=== PATIENT | female | born 1990 | race Caucasian/White ===

== ENCOUNTER → 2017-05-19 | Outpatient (CLI) | payer BC ==
[~2017-05-19] MED LIST: ACET-1175 PO; ACET-749 PO; IBUP600T44 PO; PRENTAB26 PO
--- NOTE | 2017-05-19 11:13 | DIAGNOSTIC IMAGING REPORT ---
LEFT FOOT MIN 3 VIEWS ROUTINE CLINICAL HISTORY: M79.672 Acute foot pain, left Tenderness with palpation of the 5t COMPARISON: None. DISCUSSION: The bones and joint spaces appear intact. There is no evidence of fracture, dislocation or bony disease. There is no evidence for soft tissue swelling. IMPRESSION: Negative study. Electronically signed by: Kevin Feliz M.D. 05/19/2017 11:12 AM Dictated Date/Time: 05/19/2017 11:12 AM
== END | disposition home or self-care (01) ==
LOC: C.RAD1850 10:44
PROVIDERS: ATTEND Physician Assistant
DX: M79.672 Pain in left foot (principal)

== ENCOUNTER → 2017-11-18 | Outpatient (CLI) | payer BC ==
[2017-11-18 12:39] LABS: BASO % 0.4 %; BASO ABS # 0.02 K/uL (0-0.2); COMPLETE YES; EOS % 2.8 %; HEMATOCRIT 39.1 % (37-47); IG% 0.2 %; LYMPH ABS # 1.47 K/uL (1.2-3.4); MEAN CELL VOLUME 90.9 fL (80-100); MEAN CORPUSCULAR HEMOGLOBIN 30.9 pg (25-34); MEAN PLATELET VOLUME 11.9 fL (7.4-10.4); NEUT % 62.6 %; PLATELET COUNT 205 K/uL (130-400); WHITE BLOOD COUNT 5.45 K/uL (4.8-10.8)
[2017-11-18 12:56] LABS: ALT/SGPT 20 U/L (12-78); AST/SGOT 17 U/L (15-37); BLOOD UREA NITROGEN 11 mg/dl (7-18); BUN/CREATININE RATIO 16.4 (10-20); C-REACTIVE PROTEIN < 0.29 mg/dl (0-0.29); CALCIUM 8.9 mg/dl (8.5-10.1); CARBON DIOXIDE 21 mmol/L (21-32); CHLORIDE 107 mmol/L (98-107); CREATININE 0.68 mg/dl (0.60-1.20); GLUCOSE 89 mg/dl (70-99); POTASSIUM 3.7 mmol/L (3.5-5.1); SODIUM 137 mmol/L (136-145)
[2017-11-18 13:03] LABS: ALB/GLOB RATIO 0.9 (0.9-2); ALKALINE PHOSPHATASE 75 U/L (45-117)
[2017-11-18 13:48] LABS: LYME DISEASE AB IGG NEG (NEG); LYME DISEASE AB IGM NEG (NEG)
[2017-11-20 15:30] LABS: PARVOVIRUS IgG INDEX 5.5 (<0.9); PARVOVIRUS IgM INDEX 0.4 (<0.9)
== END | disposition home or self-care (01) ==
LOC: C.LABBFT 10:14
PROVIDERS: ATTEND Physician Assistant Medical
DX: R20.0 Anesthesia of skin (principal)

== ENCOUNTER → 2017-11-20 | Outpatient (CLI) | payer BC ==
--- NOTE | 2017-11-20 18:37 | DIAGNOSTIC IMAGING REPORT ---
L-SPINE MIN 4 VIEWS ROUTINE CLINICAL HISTORY: 27 years-old Female presenting with R20.2 [id number] Upper leg pain, bilateral leg tingling for 4 days, no known injury. TECHNIQUE: Frontal, bilateral oblique, lateral, and coned in lateral views lumbar spine were obtained. COMPARISON: None. FINDINGS: Mild dextrocurvature of the lumbar spine. Normal lumbar lordosis. Vertebral bodies maintain normal height and alignment. Intervertebral disc spaces maintained. No advanced degenerative change. No radiographic evidence of osseous neural foraminal narrowing. No compression deformity or evidence of subluxation. No pars defect. IMPRESSION: Mild dextroscoliosis. Otherwise normal lumbar spine. Electronically signed by: Himanshu Beltrán M.D. 11/20/2017 6:36 PM Dictated Date/Time: 11/20/2017 6:35 PM
== END | disposition home or self-care (01) ==
LOC: C.RAD 18:13
PROVIDERS: ATTEND Internal Medicine
DX: M79.659 Pain in unspecified thigh (principal); R20.2 Paresthesia of skin

== ENCOUNTER → 2018-01-19 | Outpatient (CLI) | payer BC | END | disposition home or self-care (01) | LOC: C.PAPS 13:23 | PROVIDERS: ATTEND Obstetrics & Gynecology | DX: Z01.419 Encounter for gynecological examination (general) (routine) without abnormal findings (principal) ==

== ENCOUNTER → 2018-01-19 | Outpatient (CLI) | payer BC | END | disposition home or self-care (01) | LOC: C.LABSPEC 13:12 | PROVIDERS: ATTEND Obstetrics & Gynecology | DX: Z11.3 Encounter for screening for infections with a predominantly sexual mode of transmission (principal) ==

== ENCOUNTER → 2018-02-23 | Outpatient (CLI) | payer BC | END | disposition home or self-care (01) | LOC: C.LABSPEC 15:30 | PROVIDERS: ATTEND Physician Assistant | DX: Z30.430 Encounter for insertion of intrauterine contraceptive device (principal) ==

== ENCOUNTER 2018-04-10 22:02 | Emergency (ER) | payer BC ==
[~2018-04-10] VITALS: Ht 165.1 cm; Wt 84.0 kg
[~2018-04-10 22:02] MED LIST changes: -ACET-749 PO; +ACET300T3 PO
[2018-04-10 22:06] VITALS: TEMP 36.7; Ht 165.1 cm; Wt 84.0 kg
[2018-04-10] MEDS ORDERED: LORAZEPAM 1 MG TAB SL STA (22:22)
[2018-04-10 22:58] LABS: BASO % 0.3 %; BASO ABS # 0.02 K/uL (0-0.2); EOS % 0.1 %; EOS ABS # 0.01 K/uL (0-0.5); HEMATOCRIT 37.4 % (37-47); HEMOGLOBIN 13.1 g/dL (12.0-16.0); IG# 0.02 K/uL (0.00-0.02); LYMPH % 14.3 %; LYMPH ABS # 1.14 K/uL (1.2-3.4); MEAN CELL VOLUME 88.2 fL (80-100); MEAN CORPUSCULAR HEMOGLOBIN 30.9 pg (25-34); MEAN PLATELET VOLUME 11.8 fL (7.4-10.4); MONO % 5.5 %; MONO ABS # 0.44 K/uL (0.11-0.59); NEUT % 79.5 %; NEUT ABS # 6.35 K/uL (1.4-6.5); PLATELET COUNT 186 K/uL (130-400); RED CELL DISTRIBUTION WIDTH CV 12.1 % (11.5-14.5); RED CELL DISTRIBUTION WIDTH SD 38.5 fL (36.4-46.3); WHITE BLOOD COUNT 7.98 K/uL (4.8-10.8)
[2018-04-10 23:18] LABS: ALBUMIN 4.2 gm/dl (3.4-5.0); CALCIUM 8.7 mg/dl (8.5-10.1); CREATININE 0.72 mg/dl (0.60-1.20); POTASSIUM 3.3 mmol/L (3.5-5.1)
[2018-04-10 23:29] LABS: TOTAL PROTEIN 8.1 gm/dl (6.4-8.2)
[2018-04-11 01:41] VITALS: PULSE 89; O2SAT 97
[2018-04-11] MEDS ORDERED: LORA0.5T12 PO ×2 (01:46→21:33)
--- NOTE | 2018-04-11 01:49 | EMERGENCY ROOM VISIT NOTE ---
History First contact with patient: 22:08 Chief Complaint: OTHER COMPLAINT Stated Complaint: PANIC ATTACK, CHEST TIGHTNESS History of Present Illness The patient is a 27 year old female who presents to the Emergency Room with complaints of a possible panic attack. The patient reports that she feels like she is having a very bad panic attack. She reports tightness in her chest and a feeling that something is not right. Her symptoms started approximately 2 hours prior to arrival. She does have a history of anxiety and was previously on daily medication for this, but has not taken it for several months. She reports increased stress recently and states that this weekend is the anniversary of a very stressful event for her. She denies any active thoughts of suicide, but a friend with the patient states that the patient has made some statements of suicidality over the past few weeks. The patient denies any homicidal thoughts. She denies any drug use. Review of Systems A complete 10 point review of systems was reviewed with the patient with pertinent positives and negatives as per history of present illness. All else were negative. Past Medical/Surgical History Medical Problems: (1) Fetus OR affected by delivery by vacuum extractor Social History Smoking Status: Never Smoker Alcohol Use: none Drug Use: none Marital Status: single Occupation Status: employed Current/Historical Medications Scheduled Acetaminophen (Tylenol), 325 MG PO PRN Multivit/Min/Iron/Fol Ac/Pren ( Vitamin), 1 TAB PO DAILY Scheduled PRN Ibuprofen (Motrin), 600 MG PO [id number] PRN for Pain Lorazepam (Lorazepam), 1-2 TAB PO TID PRN for Anxiety Physical Exam Vital Signs Date Time Temp Pulse Resp B/P (MAP) Pulse Ox O2 Delivery O2 Flow Rate FiO2 04/11/18 01:59 128/59 04/11/18 01:41 89 13 97 04/11/18 01:31 115/71 04/11/18 01:11 89 13 97 04/11/18 01:06 95 13 96 04/11/18 01:01 116/76 04/11/18 00:36 92 15 97 04/11/18 00:31 113/78 04/11/18 00:06 93 17 96 04/11/18 00:01 107/78 04/10/18 23:57 81 13 96 04/10/18 23:27 117 18 97 04/10/18 23:22 106 16 97 04/10/18 23:00 107/71 04/10/18 22:52 96 19 98 04/10/18 22:47 100 18 97 Room Air 04/10/18 22:46 106/86 04/10/18 22:42 102 14 97 04/10/18 22:37 105 14 98 04/10/18 22:06 36.7 115 18 140/76 96 Room Air Physical Exam VITALS: Vitals are noted on the nurse's note and reviewed by myself. Vital signs stable. GENERAL: This is a 27-year-old female, anxious appearing, well-developed well- nourished. SKIN: The skin was without rashes. EARS: External auditory canals clear, tympanic membranes pearly cerda without erythema or effusion bilaterally. EYES: Pupils equal round and reactive to light and accommodation. NECK: Supple without nuchal rigidity. No lymphadenopathy. HEART: Regular rate and rhythm without murmurs gallops or rubs. LUNGS: Clear to auscultation bilaterally without wheezes, rales or rhonchi. NEURO: Patient was alert and oriented to person place and time. Medical Decision & Procedures Laboratory Results 04/10/18 22:40 Red Blood Count 4.24, Mean Corpuscular Volume 88.2, Mean Corpuscular Hemoglobin 30.9, Mean Corpuscular Hemoglobin Concent 35.0, Mean Platelet Volume 11.8, Neutrophils (%) (Auto) 79.5, Lymphocytes (%) (Auto) 14.3, Monocytes (%) (Auto) 5.5, Eosinophils (%) (Auto) 0.1, Basophils (%) (Auto) 0.3, Neutrophils # (Auto) 6.35, Lymphocytes # (Auto) 1.14, Monocytes # (Auto) 0.44, Eosinophils # (Auto) 0.01, Basophils # (Auto) 0.02 04/10/18 22:40 Test 04/10/18 22:40 White Blood Count 7.98 K/uL (4.8-10.8) Red Blood Count 4.24 M/uL (4.2-5.4) Hemoglobin 13.1 g/dL (12.0-16.0) Hematocrit 37.4 % (37-47) Mean Corpuscular Volume 88.2 fL (80-100) Mean Corpuscular Hemoglobin 30.9 pg (25-34) Mean Corpuscular Hemoglobin Concent 35.0 g/dl (32-36) Platelet Count 186 K/uL (130-400) Mean Platelet Volume 11.8 fL (7.4-10.4) Neutrophils (%) (Auto) 79.5 % Lymphocytes (%) (Auto) 14.3 % Monocytes (%) (Auto) 5.5 % Eosinophils (%) (Auto) 0.1 % Basophils (%) (Auto) 0.3 % Neutrophils # (Auto) 6.35 K/uL (1.4-6.5) Lymphocytes # (Auto) 1.14 K/uL (1.2-3.4) Monocytes # (Auto) 0.44 K/uL (0.11-0.59) Eosinophils # (Auto) 0.01 K/uL (0-0.5) Basophils # (Auto) 0.02 K/uL (0-0.2) RDW Standard Deviation 38.5 fL (36.4-46.3) RDW Coefficient of Variation 12.1 % (11.5-14.5) Immature Granulocyte % (Auto) 0.3 % Immature Granulocyte # (Auto) 0.02 K/uL (0.00-0.02) Urine Color YELLOW Urine Appearance CLEAR (CLEAR) Urine pH 5.5 (4.5-7.5) Urine Specific [place] 1.007 (1.000-1.030) Urine Protein NEG (NEG) Urine Glucose (UA) NEG (NEG) Urine Ketones NEG (NEG) Urine Occult Blood TRACE (NEG) Urine Nitrite NEG (NEG) Urine Bilirubin NEG (NEG) Urine Urobilinogen NEG (NEG) Urine Leukocyte Esterase NEG (NEG) Urine WBC (Auto) 0 /hpf (0-5) Urine RBC (Auto) 0-4 /hpf (0-4) Urine Hyaline Casts (Auto) 0 /lpf (0-5) Urine Epithelial Cells (Auto) 5-10 /lpf (0-5) Urine Bacteria (Auto) NEG (NEG) Urine Test NEG (NEG) Anion Gap 7.0 mmol/L (3-11) Est Creatinine Clear Calc Drug Dose 126.7 ml/min Estimated GFR () 134.0 Estimated GFR (Non- 115.6 BUN/Creatinine Ratio 7.4 (10-20) Calcium Level 8.7 mg/dl (8.5-10.1) Total Bilirubin 0.4 mg/dl (0.2-1) Aspartate Amino Transf (AST/SGOT) 12 U/L (15-37) Alanine Aminotransferase (ALT/SGPT) 15 U/L (12-78) Alkaline Phosphatase 67 U/L (45-117) Total Protein 8.1 gm/dl (6.4-8.2) Albumin 4.2 gm/dl (3.4-5.0) Globulin 3.9 gm/dl (2.5-4.0) Albumin/Globulin Ratio 1.1 (0.9-2) Thyroid Stimulating Hormone (TSH) 1.460 uIu/ml (0.300-4.500) Urine Opiates Screen NEG (NEG) Urine Methadone, Qualitative NEG (NEG) Urine Barbiturates NEG (NEG) Urine Phencyclidine (PCP) Level NEG (NEG) Ur Amphetamine/Methamphetamine NEG (NEG) MDMA (Ecstasy) Screen NEG (NEG) Urine Benzodiazepines Screen NEG (NEG) Urine Cocaine Metabolite NEG (NEG) Urine Marijuana (THC) NEG (NEG) Medications Administered Medications (Trade) Dose Ordered Sig/Adrianne Route Start Time Stop Time Status Last Admin Dose Admin Lorazepam (Ativan Tab) 1 mg NOW STAT SL 04/10/18 22:22 04/10/18 22:24 DC 04/10/18 22:29 1 MG ECG Per My Interpretation Indication: chest pain Rate (beats per minute): 104 Rhythm: sinus tachycardia Findings: no acute ischemic change, no ectopy Comparison ECG Date: no prior available ED Course The patient was evaluated as above. Labs were drawn and IV access was obtained. Patient was medicated with 1 mg Ativan sublingually. Patient was evaluated by the [address] [place] [address] liason. Discharge instructions were reviewed with the patient. The patient verbalized understanding of my assessment and treatment plan and was discharged home in good condition. Medical Decision Differential diagnosis includes anxiety, depression, anemia, thyroid disorder, electrolyte abnormality, infection, among others. The patient is a 27-year-old female who presents today complaining of possible panic attack. Labs revealed no leukocytosis, anemia or concerning electrolyte abnormalities. Urinalysis was not suggestive of infection. Urine was negative. EKG was interpreted by myself and shows no acute findings. Patient does seem to be very anxious on exam. She was given 1 mg Ativan which improved this significantly. Patient reports that she has a lot of stress and this weekend is the anniversary of a very traumatic event for her. She was agreeable to talking with 1 of the mental health liaison's. She did admit to some passive suicidal thoughts but denied any active suicidal ideations or plans. I do feel that she is safe to return home in the patient does not feel that she needs inpatient treatment at this time. Our psychiatric liaison did receive clearances so that they can make the patient appointments with a therapist as an outpatient. The patient plans to call her PCP first thing Friday to schedule an appointment. I did provide her with a very short course of Ativan to take as needed for severe anxiety. The patient was happy with this plan of care. Based on the patient's presentation and work up, I feel the patient is stable for outpatient treatment. The patient was educated to return to the emergency department for any worsening of their current condition or new/concerning symptoms. She will follow up with her PCP. Medication Reconcilliation Current Medication List: was personally reviewed by me Blood Pressure Screening Patient's blood pressure: Normal blood pressure Impression Primary Impression: Anxiety Additional Impression: Panic attacks Departure Information Dispostion Home / Self-Care Condition GOOD Referrals Juan M Ventura M.D. (PCP) Patient Instructions My [facility] Additional Instructions Ativan as prescribed as needed for severe anxiety/panic attacks. Follow-up with your primary care provider on Friday. Return here if you have worsening depression/suicidal thoughts or for any further concerns. Problem Qualifiers
[2018-04-11 01:59] VITALS: BP 128/59
[2018-04-11] MEDS ORDERED: IBUP-1450 PO (21:33)
== END 2018-04-11 02:04 | disposition home or self-care (01) ==
LOC: C.EDB 22:04
DX: F41.0 Panic disorder [episodic paroxysmal anxiety] (principal); Z79.899 Other long term (current) drug therapy

== ENCOUNTER 2018-04-11 17:29 | Inpatient (IN) | payer BC ==
[~2018-04-11] VITALS: Ht 165.1 cm; Wt 81.3 kg
[~2018-04-11 17:29] MED LIST changes: -ACET300T3 PO; +LORA0.5T12 PO
--- NOTE | 2018-04-11 17:55 | EMERGENCY ROOM VISIT NOTE ---
History Report prepared by Marci: Amish Handy Under the Supervision of: Dr. Anthony Rao M.D. First contact with patient: 17:39 Chief Complaint: ANXIETY Stated Complaint: ANXIETY History of Present Illness The patient is a 27 year old female who presents to the Emergency Room with complaints of worsening anxiety beginning recently. Patient is present with a friend. Patient was at the ED yesterday for similar symptoms. Friend called in today and stated that the patient's suicidal thoughts have been worsening lately. Patient admits to suicidal thoughts. She admits to trying to hurt herself in the past but states that she has never been admitted for it. She admits to a history of cutting herself. Patient states that symptoms are typically worsened around Mother's day because it is the anniversary of the day that she found her father . She states that "he was an awful person". She states that work has exacerbated her symptoms as well. She denies ever being admitted for stress or anxiety. She states that she has taken Prozac and Ativan in the past. She states that Prozac did not work so she discontinued it. She states that she does not currently follow with a therapist or psychiatrist. She states that she became frustrated when she saw a therapist over a year ago who told her "it was all in her head". She states that she has family in town but that she is not close with them. She admits that her family does not know what is currently going on with her. She states that she has a son that is currently being taken care of by a friend. Patient admits to using marijuana yesterday to help with her anxiety. Patient states that she drinks alcohol twice a week. She denies any active thoughts in the ER of suicidal ideations or homicidal ideations. Patient states that she sometimes does not know if she is hallucinating. She states that she has days where she is feeling really good and then other days when she feels really down. Patient's friend states that these high's and low's have worsened lately. Patient states that she recently opened up a [employer] credit card, which is not something that she would normally do. She also admits to "wanting to drive herself off a road". Friend states that the patient has been having "vivid flashbacks" the past couple of months. She states that her primary care physician is at [facility]. She states that she sees them when she needs to. Patient states that she takes Benadryl for a seafood allergy. Pertinent past medical history includes sciatica. Pertinent surgical history includes a tonsillectomy. Source of History: patient Onset: Recent Position: head Timing: worsening Modifying Factors (Worsening): other (Work) Modifying Factors (Relieving): other (None) Review of Systems See HPI for pertinent positives & negatives. A total of 10 systems reviewed and were otherwise negative. Past Medical & Surgical Medical Problems: (1) Fetus OR affected by delivery by vacuum extractor Family History Patient reports no known family medical history. Social History Smoking Status: Never Smoker Alcohol Use: none Drug Use: none Marital Status: single Occupation Status: employed Current/Historical Medications Scheduled Acetaminophen (Tylenol), 325 MG PO PRN Multivit/Min/Iron/Fol Ac/Pren ( Vitamin), 1 TAB PO DAILY Scheduled PRN Ibuprofen (Motrin), 600 MG PO [id number] PRN for Pain Lorazepam (Lorazepam), 1-2 TAB PO TID PRN for Anxiety Allergies Coded Allergies: Fish Allergy (Unverified Allergy, Severe, THROAT SWELLS, 04/10/18) Fish Oil (Unverified Allergy, Severe, THROAT SWELLS, 04/10/18) Shellfish Allergy (Unverified Allergy, Unknown, HIVES, 04/10/18) Hydrocodone (Verified Adverse Reaction, Mild, SHAKINESS, 04/10/18) Physical Exam Vital Signs Date Time Temp Pulse Resp B/P (MAP) Pulse Ox O2 Delivery O2 Flow Rate FiO2 04/11/18 17:31 36.8 72 20 114/68 96 Room Air Physical Exam GENERAL: Patient is sad appearing, in mild distress, crying periodically, and appropriate. EYES: No scleral icterus, unremarkable pupils. ENT: Mucous membranes moist, no nasal congestion. NECK: No masses appreciated, no meningismus, trachea is midline. RESPIRATORY: No dyspnea. Clear to auscultation and equal bilaterally. No wheeze , no rhonchi. CARDIOVASCULAR: Regular rate and rhythm. No murmurs, rubs, gallops appreciated. GASTROINTESTINAL: Abdomen soft, nontender, no peritonitis. Bowel sounds positive. No masses appreciated. BACK: No midline tenderness, no CVA tenderness EXTREMITIES: Normal motion all extremities, no cyanosis, no edema. NEUROLOGIC: Alert and oriented, no acute motor or sensory deficits, no focal weakness, cranial nerves grossly intact. PSYCH: Sad, crying, depressed, admits suicidal ideations, and admits episodes of lola. SKIN: No rash, no jaundice, no diaphoresis. Medical Decision & Procedures Laboratory Results 04/11/18 18:02 Red Blood Count 4.39, Mean Corpuscular Volume 88.6, Mean Corpuscular Hemoglobin 30.8, Mean Corpuscular Hemoglobin Concent 34.7, Mean Platelet Volume 11.8, Neutrophils (%) (Auto) 55.8, Lymphocytes (%) (Auto) 33.1, Monocytes (%) (Auto) 9.7, Eosinophils (%) (Auto) 1.2, Basophils (%) (Auto) 0.2, Neutrophils # (Auto) 2.82, Lymphocytes # (Auto) 1.67, Monocytes # (Auto) 0.49, Eosinophils # (Auto) 0.06, Basophils # (Auto) 0.01 04/11/18 18:02 Test 04/11/18 17:45 04/11/18 18:02 Urine Color YELLOW Urine Appearance CLEAR (CLEAR) Urine pH 7.0 (4.5-7.5) Urine Specific [place] 1.008 (1.000-1.030) Urine Protein NEG (NEG) Urine Glucose (UA) NEG (NEG) Urine Ketones NEG (NEG) Urine Occult Blood NEG (NEG) Urine Nitrite NEG (NEG) Urine Bilirubin NEG (NEG) Urine Urobilinogen NEG (NEG) Urine Leukocyte Esterase NEG (NEG) Urine WBC (Auto) 1-5 /hpf (0-5) Urine RBC (Auto) 0-4 /hpf (0-4) Urine Hyaline Casts (Auto) 0 /lpf (0-5) Urine Epithelial Cells (Auto) >30 /lpf (0-5) Urine Bacteria (Auto) NEG (NEG) Urine Test NEG (NEG) Urine Opiates Screen NEG (NEG) Urine Methadone, Qualitative NEG (NEG) Urine Barbiturates NEG (NEG) Urine Phencyclidine (PCP) Level NEG (NEG) Ur Amphetamine/Methamphetamine NEG (NEG) MDMA (Ecstasy) Screen NEG (NEG) Urine Benzodiazepines Screen NEG (NEG) Urine Cocaine Metabolite NEG (NEG) Urine Marijuana (THC) NEG (NEG) White Blood Count 5.05 K/uL (4.8-10.8) Red Blood Count 4.39 M/uL (4.2-5.4) Hemoglobin 13.5 g/dL (12.0-16.0) Hematocrit 38.9 % (37-47) Mean Corpuscular Volume 88.6 fL (80-100) Mean Corpuscular Hemoglobin 30.8 pg (25-34) Mean Corpuscular Hemoglobin Concent 34.7 g/dl (32-36) Platelet Count 191 K/uL (130-400) Mean Platelet Volume 11.8 fL (7.4-10.4) Neutrophils (%) (Auto) 55.8 % Lymphocytes (%) (Auto) 33.1 % Monocytes (%) (Auto) 9.7 % Eosinophils (%) (Auto) 1.2 % Basophils (%) (Auto) 0.2 % Neutrophils # (Auto) 2.82 K/uL (1.4-6.5) Lymphocytes # (Auto) 1.67 K/uL (1.2-3.4) Monocytes # (Auto) 0.49 K/uL (0.11-0.59) Eosinophils # (Auto) 0.06 K/uL (0-0.5) Basophils # (Auto) 0.01 K/uL (0-0.2) RDW Standard Deviation 38.9 fL (36.4-46.3) RDW Coefficient of Variation 12.0 % (11.5-14.5) Immature Granulocyte % (Auto) 0.0 % Immature Granulocyte # (Auto) 0.00 K/uL (0.00-0.02) Anion Gap 6.0 mmol/L (3-11) Est Creatinine Clear Calc Drug Dose 118.6 ml/min Estimated GFR () 123.5 Estimated GFR (Non- 106.6 BUN/Creatinine Ratio 7.3 (10-20) Calcium Level 9.2 mg/dl (8.5-10.1) Total Bilirubin 0.5 mg/dl (0.2-1) Aspartate Amino Transf (AST/SGOT) 12 U/L (15-37) Alanine Aminotransferase (ALT/SGPT) 14 U/L (12-78) Alkaline Phosphatase 65 U/L (45-117) Total Protein 8.5 gm/dl (6.4-8.2) Albumin 4.5 gm/dl (3.4-5.0) Globulin 4.0 gm/dl (2.5-4.0) Albumin/Globulin Ratio 1.1 (0.9-2) Thyroid Stimulating Hormone (TSH) 2.540 uIu/ml (0.300-4.500) Salicylates Level < 1.7 mg/dl (2.8-20) Acetaminophen Level < 2 ug/ml (10-30) Ethyl Alcohol mg/dL < 3.0 mg/dl (0-3) Laboratory results as reviewed by me. Medications Administered Medications (Trade) Dose Ordered Sig/Adrianne Route Start Time Stop Time Status Last Admin Dose Admin Lorazepam (Ativan Tab) 1 mg NOW STAT SL 04/11/18 19:58 04/11/18 19:59 DC 04/11/18 20:26 1 MG ED Course 1739: The patient was evaluated in room A8. A complete history and physical exam was performed. 1909: I reassessed the patient. She is agreeable to inpatient psychiatric treatment. 2021: [address] [place] [address] has accepted the patient for transfer. Discussed results and treatment plan with the patient. She verbalized understanding and agreement with the treatment plan. The patient will be evaluated for further management. Medical Decision Differential: Mood Disorder, Overdose, Infectious, Electrolyte Abnormality, Cardiac, Hepatic, Endocrine, Toxicologic, Neurologic, amongst other pathologies entertained. 27 yr old female arrives with acute worsening of anxiety and depression. She has this occur with this time of year though it is significantly worse than previous. Today with thoughts of driving care off road to kill herself. Admits that she had hoped when she went home last evening with anxiety things would have gotten better but they have spiralled since getting home and she feels she is no longer safe, as she felt safe last night. She is very much willing to participate in her care and be admitted to inpatient psych. Medically clear. Admitted to [address] [place] [address] as 201 in stable condition. Medication Reconcilliation Current Medication List: was personally reviewed by me Blood Pressure Screening Patient's blood pressure: Normal blood pressure Blood pressure disposition: Did not require urgent referral Impression Primary Impression: Depression Additional Impressions: Suicidal ideations Acute anxiety Scribe Attestation The scribe's documentation has been prepared under my direction and personally reviewed by me in its entirety. I confirm that the note above accurately reflects all work, treatment, procedures, and medical decision making performed by me. Departure Information Dispostion Transfer Acute Care Facility Referrals Juan M Ventura M.D. (PCP) Forms HOME CARE DOCUMENTATION FORM, IMPORTANT VISIT INFORMATION Patient Instructions My [facility] Problem Qualifiers
[2018-04-11 18:16] LABS: BASO % 0.2 %; BASO ABS # 0.01 K/uL (0-0.2); EOS % 1.2 %; EOS ABS # 0.06 K/uL (0-0.5); HEMATOCRIT 38.9 % (37-47); HEMOGLOBIN 13.5 g/dL (12.0-16.0); LYMPH % 33.1 %; LYMPH ABS # 1.67 K/uL (1.2-3.4); MEAN CELL VOLUME 88.6 fL (80-100); MEAN CORPUSCULAR HEMOGLOBIN 30.8 pg (25-34); MEAN CORPUSCULAR HGB CONC 34.7 g/dl (32-36); MEAN PLATELET VOLUME 11.8 fL (7.4-10.4); MONO % 9.7 %; MONO ABS # 0.49 K/uL (0.11-0.59); NEUT % 55.8 %; NEUT ABS # 2.82 K/uL (1.4-6.5); PLATELET COUNT 191 K/uL (130-400); RED CELL DISTRIBUTION WIDTH SD 38.9 fL (36.4-46.3); WHITE BLOOD COUNT 5.05 K/uL (4.8-10.8)
[2018-04-11 18:34] LABS: ALBUMIN 4.5 gm/dl (3.4-5.0); CALCIUM 9.2 mg/dl (8.5-10.1); CREATININE 0.77 mg/dl (0.60-1.20); POTASSIUM 3.7 mmol/L (3.5-5.1)
[2018-04-11 18:42] LABS: TOTAL PROTEIN 8.5 gm/dl (6.4-8.2)
[2018-04-11] MEDS ORDERED: LORAZEPAM 1 MG TAB SL STA (19:58)
[2018-04-11] MEDS ORDERED: NURSING VERBAL MED ORDER ONE (20:00)
[2018-04-11 20:30] VITALS: O2SAT 98
[2018-04-11] MEDS ORDERED: ACETAMINOPHEN 325 MG TAB PO PRN (20:30)
[2018-04-11] MEDS ORDERED: hydrOXYzine HCL 25 MG TAB PO PRN (20:30)
[2018-04-11] MEDS ORDERED: MAGNESIUM HYDROXIDE SUSP 30 ML UDC PO PRN (20:30)
[2018-04-11] MEDS ORDERED: SODIUM CHLORIDE 0.65% NA SOLN 45 ML (OCEAN) PRN (20:30)
[2018-04-11] MEDS ORDERED: ALUMINUM/MAGNESIUM SUSP 30 ML UDC PO PRN (20:30)
[2018-04-11] MEDS ORDERED: BISMUTH SUBSALICYLATE PER ML OMNICELL CHARGE PO PRN (20:30)
[2018-04-11 20:36] VITALS: BP_SYST 118; BP_SYST 120; BP_DIAS 60; BP_DIAS 81; PULSE 88; TEMP 36.5; TEMP 36.8; Ht 165.1 cm; Wt 81.3 kg
[2018-04-11] MEDS ORDERED: LORA0.5T12 PO (21:33)
[2018-04-11] MEDS ORDERED: IBUP-1450 PO (21:33)
[2018-04-12 06:55] VITALS: BP_SYST 112; BP_SYST 113; BP_DIAS 75; BP_DIAS 76; PULSE 105; PULSE 82; TEMP 36.4
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
[2018-04-12] MEDS ORDERED: SERTRALINE HCL 50 MG TAB PO ONE (08:45)
[2018-04-12] MEDS: hydrOXYzine HCL 25 MG TAB PO PRN (20:25)
[2018-04-12] MEDS: PRAZOSIN HCL 1 MG CAP PO SCH (21:52)
[2018-04-12] MEDS ORDERED: PRAZOSIN HCL 1 MG CAP PO SCH (22:00)
[2018-04-13 06:51] VITALS: BP_SYST 108; BP_SYST 112; BP_DIAS 64; BP_DIAS 66; PULSE 101; PULSE 78; TEMP 36.4
[2018-04-13] MEDS ORDERED: SERTRALINE HCL 50 MG TAB PO SCH (09:00)
--- NOTE | 2018-04-13 12:14 | Psychiatric Progress Notes ---
Progress Note Date of Service April 13, 2018. Interval History Leticia Rojas is a 27-year-old female admitted voluntarily on April 11, 2018 at 20: 05 after presenting to the ED 2 days in a row with depression, anxiety, and now suicidality. Information is obtained from the patient and considered to be reliable. Chief Complaint "Yeah, things are ok, just a little overwhelming". Subjective Patient was seen & assessed interval progress reviewed with Treatment Team. Staff reports the patient is to have a phone meeting with her sister this afternoon. Pt was seen today to assess progress since admission. Pt states she is doing well, but still adjusting to the unit. Pt denies changes to her mood thus far, and reports anxiety related to being from her 6-year- old son during her hospitalization. Pt denies side effects since beginning sertraline 50mg daily. Pt denies SI currently and states, "I just feel like the whole last 6 months have been a blur." Pt confirms plans for a phone meeting with her sister this afternoon. As patient was unsure of the reason for these meetings, she was informed of the points discussed as well as encouraged to discuss stressors/needs with her sister in order to obtain appropriate support once discharged. Pt denies additional needs or concerns today. Review of Systems Psych: denies symptoms other than stated above Constitutional: denied Cardiovascular: denied GI: denied Neurologic: denied Remainder of 10 body systems also reviewed and denied other than noted above. Sleep Information Total Hours of Sleep: 7.25 Meal Information Percent of Breakfast Consumed: 100 Percent of Lunch Consumed: 100 Percent of Dinner Consumed: 100 Mental Status Exam During interview pt is: alert and oriented, cooperative Appearance: appropriately dressed, appropriately groomed Eye contact is: good Motor behavior is: steady gait & station, no abnormal motor movements Speech: normal in rate, rhythm & volume Affect: mood congruent, blunted Mood is: anxious (about being away from son, adjusting to unit) Thought process: goal directed, clear, coherent Thought content: reality based without delusions Suicidal thought are: denied (present prior to admission), Plan: present ( Thoughts to drive her car off the road), Intent: denied Homicidal thoughts are: denied Hallucinations: denies auditory, denies visual Cognition: memory grossly intact, attention grossly intact, language grossly intact Intelligence estimated to be: average Insight: limited Judgement: limited Impression Pt states she is glad she presented for treatment, but denies much difference in reported mood or anxiety today. Pt denies feeling suicidal this morning, but states she feels like the last 6 months have been a "blur". Reviewed mechanism of action with SSRIs as well as typical 4-6 week period to expected maximum benefit. Share with patient our recommendations to titrate sertraline as tolerated. Pt denies any side effects since starting sertraline. She was offered additional time at her current 50mg dose or an increase to 75mg starting tomorrow. Pt was agreeable to titration to 75mg tomorrow morning. Will continue to observe for possible side effects and continue titration as necessary. Risks and benefits of dose increases were discussed. Pt verbalized understanding. Prazosin 1 mg given last evening for nightmares related to PTSD. Continue to monitor blood pressure. Will require psychiatric aftercare. At this time, the patient requires inpatient mental health treatment due to the severity of her condition, and the risk for self-harm if discharged prematurely. Plan (1) Major depressive disorder, recurrent severe without psychotic features 04/12 - Start zoloft 25 mg today increasing to 50 mg tomorrow - Family meeting if indicated - Q 15 min checks for safety - Encourage participation in group and individual counseling - The patient will need psychiatric aftercare including a therapist and psychiatric prescriber - Assist the patient to learn and utilize additional healthy coping strategies 04/13 - Increase sertraline to 75mg tomorrow morning, pt denies side effects - Family meeting with sister to be held this afternoon - Continue to encourage participation in group and recreational therapies - Will need psychiatric aftercare (2) PTSD (post-traumatic stress disorder) 04/12 - Zoloft as above - Prazosin 1 mg. HS for nightmares. Monitor BP Discharge / Aftercare Planning Primary Care Physician: Name: Gumaro Desouza Therapist: Name: Was with Alicia Bejarano (Poor connection) Computer Teacher: Name: Ketan Visit Code E&M Code: 19325 Inventory Assets Strengths: Love of her son, employed full-time Needs: Additional coping strategies Risk Factors Assessment : Yes /single/: Yes Higher / Fall in social status: No Health problems: No Mental Health Diagnoses: Yes Substance use disorders: No Previous attempt: No Family history of suicide: Yes Previous psychiatric stay: No Hopelessness: No Smoker: No Protective Factors Assessment Jain beliefs: Yes : No Responsible for young children: Yes Employed: Yes Supportive family: Yes Data Vital Signs Last 24 Hrs: Date Time Temp Pulse Resp B/P (MAP) Pulse Ox O2 Delivery O2 Flow Rate FiO2 04/13/18 06:51 36.4 78 16 112/66 101 108/64 Meds Administered Last 24 Hrs: Meds Administered (Past 24Hrs) Medications (Trade) Dose Ordered Sig/Adrianne Route Start Time Stop Time Status Last Admin Dose Admin Lorazepam (Ativan Tab) 1 mg NOW STAT SL 04/11/18 19:58 04/11/18 19:59 DC 04/11/18 20:26 1 MG Hydroxyzine HCl (Vistaril Tab) 25 mg Q4H PRN PO 04/11/18 20:30 05/11/18 20:29 04/12/18 20:25 25 MG Sertraline HCl (Zoloft Tab) 50 mg QAM PO 04/13/18 09:00 05/13/18 08:59 04/13/18 08:09 50 MG Sertraline HCl (Zoloft Tab) 25 mg 0845 ONCE PO 04/12/18 08:45 04/12/18 08:46 DC 04/12/18 08:57 25 MG Prazosin HCl (Prazosin) 1 mg HS PO 04/12/18 22:00 05/12/18 21:59 04/12/18 21:52 1 MG
[2018-04-13] MEDS: hydrOXYzine HCL 25 MG TAB PO PRN (20:57)
[2018-04-13] MEDS: PRAZOSIN HCL 1 MG CAP PO SCH (22:58)
[2018-04-13 23:06] VITALS: BP 105/71; PULSE 73
[2018-04-14 06:56] VITALS: BP_SYST 107; BP_DIAS 67; BP_DIAS 70; PULSE 108; PULSE 78; TEMP 36.7
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
[2018-04-14] MEDS ORDERED: SERTRALINE HCL 50 MG TAB PO SCH ×2 (09:00)
[2018-04-14] MEDS: hydrOXYzine HCL 25 MG TAB PO PRN (17:21)
[2018-04-14] MEDS: PRAZOSIN HCL 1 MG CAP PO SCH (21:05)
[2018-04-15 06:57] VITALS: BP_SYST 103; BP_SYST 107; BP_DIAS 71; BP_DIAS 74; PULSE 80; PULSE 91; TEMP 36.4
[2018-04-15] MEDS ORDERED: SERTRALINE HCL 100 MG TAB PO SCH (09:00)
[2018-04-15] MEDS ORDERED: ATR25 PO (09:11)
[2018-04-15] MEDS ORDERED: ZLF/100 PO (09:11)
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
[2018-04-15] MEDS ORDERED: PRZ1 PO (11:43)
== END 2018-04-15 12:21 | disposition home or self-care (01) | DRG 885 ==
LOC: C.EDB 17:30 → C.MHU 20:05
PROVIDERS: ADMIT Psychiatry & Neurology Child & Adolescent Psychiatry; ATTEND Psychiatry & Neurology Child & Adolescent Psychiatry
DX: F33.2 Major depressive disorder, recurrent severe without psychotic features (principal); R45.851 Suicidal ideations; F43.10 Post-traumatic stress disorder, unspecified; Z72.89 Other problems related to lifestyle; Z81.8 Family history of other mental and behavioral disorders; Z88.5 Allergy status to narcotic agent; Z91.013 Allergy to seafood; Z91.5 Personal history of self-harm

== ENCOUNTER 2019-05-01 00:07 | Inpatient (IN) ==
[2019-05-01] MEDS ORDERED: OSELTAMIVIR PHOSPHATE 75 MG CAP PO STA (00:31)
[2019-05-01] MEDS ORDERED: HYDROCODONE/HOMATROPINE SYRUP 5MG/1.5MG 5ML UDP PO STA (00:31)
[2019-05-01] MEDS ORDERED: ALBUT/IPRATROP 3MG/0.5MG NEB 3 ML VIAL NEB ONE (00:31)
[2019-05-01] MEDS ORDERED: methylPREDNISolone 125 MG/2 ML VIAL IV STA (00:31)
[2019-05-01 00:50] LABS: Appearance Urine Clear (Clear); Bilirubin Urine Negative (Negative); Blood Urine Negative (Negative); Color Urine Yellow; Glucose Urine UA Negative (Negative); Ketones Urine Negative (Negative); Leukocyte Esterase Urine Negative (Negative); Nitrite Urine Negative (Negative); Protein Urine Negative (Negative); Specific Gravity Urine 1.025 (1.000-1.030); Urobilinogen Urine Negative (Negative)
[2019-05-01 01:43] LABS: Base Excess VBG -1.6 mEq/L; Oxygen Saturation VBG 66.2 %; pH VBG 7.46 (7.36-7.41)
[2019-05-01 01:45] LABS: Basophils # (auto) 0.01 K/uL (0-0.2); Basophils % (auto) 0.2 %; Hematocrit (blood only) 36.9 % (37-47); Hemoglobin 13.3 g/dL (12.0-16.0); Immature Granulocytes # (auto) 0.01 K/uL (0.00-0.02); Immature Granulocytes % (auto) 0.2 %; Lymphocytes # (auto) 1.15 K/uL (1.2-3.4); Lymphocytes % (auto) 22.2 %; Mean Corpuscular Volume 87.6 fL (80-100); Mean Platelet Volume 12.1 fL (7.4-10.4); Monocytes # (auto) 0.66 K/uL (0.11-0.59); Monocytes % (auto) 12.8 %; Neutrophils # (auto) 3.34 K/uL (1.4-6.5); Neutrophils % (auto) 64.6 %; Platelet Count 139 K/uL (130-400); RDW Standard Deviation 38.2 fL (36.4-46.3); Red Blood Count 4.21 M/uL (4.2-5.4); White Blood Count 5.17 K/uL (4.8-10.8)
[2019-05-01 02:03] LABS: Alanine Aminotransferase 118 U/L (12-78); Albumin Level 3.5 gm/dl (3.4-5.0); Aspartate Aminotransferase 63 U/L (15-37); BUN Creatinine Ratio 13.9 (10-20); Bilirubin,Total 0.3 mg/dl (0.2-1); Blood Urea Nitrogen 9 mg/dl (7-18); Calcium 9.1 mg/dl (8.5-10.1); Carbon Dioxide 23 mmol/L (21-32); Chloride 108 mmol/L (98-107); Creatinine Clr Calc Pharmacy 142.7 ml/min; Est GFR (African American) 140.3; Est GFR (Non-African American) 121.1; Glucose 115 mg/dl (70-99); Magnesium 1.8 mg/dl (1.8-2.4); Potassium 3.4 mmol/L (3.5-5.1); Sodium 139 mmol/L (136-145); Total Protein 7.7 gm/dl (6.4-8.2)
[2019-05-01 02:06] LABS: Alkaline Phosphatase 84 U/L (45-117); Bilirubin Direct < 0.1 mg/dl (0-0.2); Troponin I < 0.015 ng/ml (0-0.045)
[2019-05-01] MEDS ORDERED: LEVOFLOXACIN/D5W 750 MG/150 ML BAG IV STA (02:06)
[2019-05-01] MEDS ORDERED: SODIUM CHLORIDE 0.9% 1000ML 1,000 ML IV ONE ×2 (02:08)
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
[2019-05-01] MEDS ORDERED: ALUMINUM/MAGNESIUM SUSP 30 ML UDC PO PRN (06:11)
[2019-05-01] MEDS ORDERED: ACETAMINOPHEN 325 MG TAB PO PRN (06:11)
[2019-05-01] MEDS ORDERED: ZOLPIDEM TARTRATE 5 MG TAB PO PRN (06:11)
[2019-05-01] MEDS ORDERED: POLYETHYLENE (MIRALAX) 17 GM PACK PO PRN (06:11)
[2019-05-01] MEDS ORDERED: GUAIFENESIN/CODEINE 100MG/10MG 5ML UDC PO PRN (06:11)
[2019-05-01] MEDS ORDERED: GUAIFENESIN/CODEINE 200MG/20MG 10ML UDC PO PRN (06:11)
[2019-05-01] MEDS ORDERED: MAGNESIUM HYDROXIDE SUSP 30 ML UDC PO PRN (06:11)
[2019-05-01] MEDS ORDERED: ONDANSETRON INJ 2 MG/ML 2 ML VIAL IV PRN (06:11)
--- NOTE | 2019-05-01 06:27 | Emergency Department Note ---
Entered by Figueroa Mccauley acting as a scribe for ED Provider Note Name: Leticia Rojas Age: 28, female Arrives Via: Walk in Informant: Patient CC: SOB HPI: The patient is a 28 year old female who presents to the emergency department with complains of constant SOB beginning a few days ago. The patient states that she was tested positive for influenza A today. She notes that she was in [place] last week and might have picked up influenza on the plane. She reports that she was in the emergency department earlier today but she states that her SOB has worsened. She notes that she was given epinephrine, three breathing treatments, and Solu Medrol while in the ER. She reports that it currently feels as though she is drowning. She also complains of a cough and diarrhea. She denies any leg pain, calf pain, ear pain, abdominal pain, urinary symptoms, and LOC. ROS: See above HPI for pertinent positives & negatives. A total of 10 systems r eviewed and were otherwise negative. Past Medical History: PTSD, major depressive disorder Past Surgical History: None Family History: None Social History: Does not smoke cigarettes, does not drink alcohol, does not use drugs. Home Medications: Albuterol Sulfate, aripiprazole, prazosin, prednisone, sertraline. Allergies: Fish oil, hydrocodone. Physical: Vitals: BP 111/53 L, Pulse 108 H, Resp 24, Temp 97.9 F, O2 Sat 97 Exam: GENERAL: Patient is unwell appearing and in moderate distress. EYES: No scleral icterus, unremarkable pupils. ENT: Mucous membranes moist, no nasal congestion. NECK: No masses appreciated, no meningismus, trachea is midline. RESPIRATORY: No dyspnea. No rhonchi. Diffuse inspiratory and expiratory wheezing with crackles at the bases. Persistently coughing. CARDIOVASCULAR: Regular rhythm and tachycardic. No murmurs, rubs, gallops appreciated. GASTROINTESTINAL: Abdomen soft, non-tender, no peritonitis. Bowel sounds positive. No masses appreciated. BACK: No midline tenderness, no CVA tenderness EXTREMITIES: Normal motion all extremities, no cyanosis, no edema. NEUROLOGIC: Alert and oriented, no acute motor or sensory deficits, no focal weakness, cranial nerves grossly intact. SKIN: No rash, no jaundice, no diaphoresis. ED Course: Prior Medical Record, Triage/Nursing Notes, Medications, Allergies reviewed by [id number]: The patient was evaluated in room A3. A complete history and physical exam was performed. 0124: I reevaluated and updated the patient. Her breathing has improved. 0145: Dr. Barajas - Hospitalist, [facility], has been paged. I reevaluated and updated the patient. Her breathing has improved but she is still wheezing. She notes that she feels better after receiving a breathing treatment. She is agreeable to hospitalization. 0213: I rechecked the patient. She feels better but is still mildly tachycardic. She is agreeable to inpatient treatment. 0236: Upon reevaluation, the patient is stable. I discussed the findings and the treatment plan with the patient. She expresses agreement and understanding. I spoke with Dr. Barajas of the [facility] Hospitalist Service. The patient will be evaluated for further management. Vital Signs: reviewed and remarkable for Tachy, febrile Labs: Reviewed and remarkable for elevated lactic acid Interventions: Saline Lock, Solumedrol 125mg IV, Levaquin 750mg IV, Hycodan 5mL PO, Tamiflu 75mg PO, NSS bolus 2 L IV, Duoneb hour long Imaging: X ray results are stated below per my interpretation: Chest: 1 view: No infiltrate, no effusion, normal cardiac border. Similar to previous CXR earlier in day Consults: 0236: I reviewed the patient's case with Dr. Barajas - Hospitaldavid, [facility]. He will evaluate the patient for further management. Blood pressure: Normal. No Referral necessary Disposition: Hospitalization Differentials: Differential diagnoses includes: infections, reactive airway disease, COPD, pneumonia, pleural effusion, pulmonary edema, ARDS, pneumothorax, CHF, cardiac ischemia, cardiac tamponade, dysrhythmia, anemia, pulmonary embolism, musculoskeletal, gastrointestinal process, as well as others were entertained. Medical Decision Making: Pleasant 28 yr old female with influenza by PCR that she has been dealing with for the last 5 days, who happens to be on Augmentin and steroids for OM and URI treated by Urgent care. She arrives for second time today with worsening respiratory status. She has quite poor lung exam though cxr not very impress mirella. This is consistent however with post flu pneumonia and I suspect dehydration is keeping cxr unremarkable. WBC OK, though lactate elevated. Will treat as sepsis though may just be dehydration related. She does not have evidence of overt ARDS nor pulmonary edema at this time. She has been on Augmentin though will switch to Levaquin for more atypical coverage as well. Patient feeling vastly improved with above but still shob. I do not feel that CT PE indicated given likely other cause and normal dimer earlier. Impression: Acute Respiratory Distress, influenza, lactic acidosis, pneumonia Anthony Rao MD The scribe's documentation has been prepared under my direction and personally reviewed by me in its entirety. I confirm that the note above accurately reflects all work, treatment, procedures, and medical decision making performed by me. 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 Beliefs That Will Affect Care: None Current Living Situation: Spouse current occupation: [employer] employee Feels Safe at Home: Yes Safety Concerns: Feels Safe At This Time Smoking Status: Never smoker Hx Alcohol Use: Yes Alcohol type: wine Hx Substance Use: No Results & Data Vital Signs Vital Signs - 24 hr 05/01/19 00:08 05/01/19 00:10 05/01/19 00:53 Temperature 36.6 C Temperature Source Oral Sepsis Recent Fever Within 48 Hours No Sepsis Action Taken by Nursing No Action Required Pulse Rate 88 Pulse Rate [Right Finger] 71 Respiratory Rate 30 H 24 Respiratory Effort / Characteristics Labored Spontaneous Short of Breath SOB on Exertion Respiratory Depth Deep Blood Pressure 131/85 Blood Pressure [Right Arm] Blood Pressure Mean 100 Blood Pressure Mean [Right Arm] Blood Pressure Position [Right Arm] Pulse Oximetry 98 95 Oxygen Delivery Method Room Air Room Air Room Air 05/01/19 02:08 05/01/19 04:00 Temperature Temperature Source Sepsis Recent Fever Within 48 Hours Sepsis Action Taken by Nursing Pulse Rate Pulse Rate [Right Finger] 108 H 97 H Respiratory Rate 18 Respiratory Effort / Characteristics Respiratory Depth Blood Pressure Blood Pressure [Right Arm] 111/53 L 124/73 Blood Pressure Mean Blood Pressure Mean [Right Arm] 72 90 Blood Pressure Position [Right Arm] Lying Pulse Oximetry 97 97 Oxygen Delivery Method Room Air Home Medications Current Medication List: was personally reviewed by me Laboratory Data Attestation: I reviewed the patient's lab results. Result diagrams: 05/01/19 01:14 05/01/19 01:14 Lab Results 05/01/19 05/01/19 05/01/19 Range/Units 00:30 01:14 01:14 WBC 5.17 (4.8-10.8) K/uL RBC 4.21 (4.2-5.4) M/uL Hgb 13.3 (12.0-16.0) g/dL Hct 36.9 L (37-47) % MCV 87.6 (80-100) fL MCH 31.6 (25-34) pg MCHC 36.0 (32-36) g/dL RDW Std Deviation 38.2 (36.4-46.3) fL RDW Coeff of Joselyn 12.0 (11.5-14.5) % Plt Count 139 (130-400) K/uL MPV 12.1 H (7.4-10.4) fL Immature Gran % (Auto) 0.2 % Neut % (Auto) 64.6 % Lymph % (Auto) 22.2 % [place] % (Auto) 12.8 % Eos % (Auto) 0.0 % Baso % (Auto) 0.2 % Immature Gran # (Auto) 0.01 (0.00-0.02) K/uL Neut # (Auto) 3.34 (1.4-6.5) K/uL Lymph # (Auto) 1.15 L (1.2-3.4) K/uL [place] # (Auto) 0.66 H (0.11-0.59) K/uL Eos # (Auto) 0.00 (0-0.5) K/uL Baso # (Auto) 0.01 (0-0.2) K/uL VBG pH (7.36-7.41) VBG pCO2 (38-50) mmHg VBG pO2 mmHg VBG HCO3 mmol/L VBG O2 Saturation % VBG Base Excess mEq/L Barometric Pressure mm/Hg Sodium 139 (136-145) mmol/L Potassium 3.4 L (3.5-5.1) mmol/L Chloride 108 H (98-107) mmol/L Carbon Dioxide 23 (21-32) mmol/L Anion Gap 8.0 (3-11) BUN 9 (7-18) mg/dl Creatinine 0.66 (0.6-1.2) mg/dl Est Cr Clr Drug Dosing 142.7 ml/min Est GFR ( Amer) 140.3 Est GFR (Non-Af Amer) 121.1 BUN/Creatinine Ratio 13.9 (10-20) Glucose 115 H (70-99) mg/dl Lactate (0.4-2.0) mmol/L Calcium 9.1 (8.5-10.1) mg/dl Magnesium 1.8 (1.8-2.4) mg/dl Total Bilirubin 0.3 (0.2-1) mg/dl Direct Bilirubin < 0.1 (0-0.2) mg/dl AST 63 H (15-37) U/L ALT 118 H (12-78) U/L Alkaline Phosphatase 84 (45-117) U/L Troponin I < 0.015 (0-0.045) ng/ml Total Protein 7.7 (6.4-8.2) gm/dl Albumin 3.5 (3.4-5.0) gm/dl Urine Color Yellow Urine Appearance Clear (Clear) Urine pH 7.0 (4.5-7.5) Ur Specific [place] 1.025 (1.000-1.030) Urine Protein Negative (Negative) Urine Glucose (UA) Negative (Negative) Urine Ketones Negative (Negative) Urine Blood Negative (Negative) Urine Nitrite Negative (Negative) Urine Bilirubin Negative (Negative) Urine Urobilinogen Negative (Negative) Ur Leukocyte Esterase Negative (Negative) 05/01/19 05/01/19 Range/Units 01:32 01:32 WBC (4.8-10.8) K/uL RBC (4.2-5.4) M/uL Hgb (12.0-16.0) g/dL Hct (37-47) % MCV (80-100) fL MCH (25-34) pg MCHC (32-36) g/dL RDW Std Deviation (36.4-46.3) fL RDW Coeff of Joselyn (11.5-14.5) % Plt Count (130-400) K/uL MPV (7.4-10.4) fL Immature Gran % (Auto) % Neut % (Auto) % Lymph % (Auto) % [place] % (Auto) % Eos % (Auto) % Baso % (Auto) % Immature Gran # (Auto) (0.00-0.02) K/uL Neut # (Auto) (1.4-6.5) K/uL Lymph # (Auto) (1.2-3.4) K/uL [place] # (Auto) (0.11-0.59) K/uL Eos # (Auto) (0-0.5) K/uL Baso # (Auto) (0-0.2) K/uL VBG pH 7.46 H (7.36-7.41) VBG pCO2 31 L (38-50) mmHg VBG pO2 33 mmHg VBG HCO3 21 mmol/L VBG O2 Saturation 66.2 % VBG Base Excess -1.6 mEq/L Barometric Pressure 728.3 mm/Hg Sodium (136-145) mmol/L Potassium (3.5-5.1) mmol/L Chloride (98-107) mmol/L Carbon Dioxide (21-32) mmol/L Anion Gap (3-11) BUN (7-18) mg/dl Creatinine (0.6-1.2) mg/dl Est Cr Clr Drug Dosing ml/min Est GFR ( Amer) Est GFR (Non-Af Amer) BUN/Creatinine Ratio (10-20) Glucose (70-99) mg/dl Lactate 2.4 H* (0.4-2.0) mmol/L Calcium (8.5-10.1) mg/dl Magnesium (1.8-2.4) mg/dl Total Bilirubin (0.2-1) mg/dl Direct Bilirubin (0-0.2) mg/dl AST (15-37) U/L ALT (12-78) U/L Alkaline Phosphatase (45-117) U/L Troponin I (0-0.045) ng/ml Total Protein (6.4-8.2) gm/dl Albumin (3.4-5.0) gm/dl Urine Color Urine Appearance (Clear) Urine pH (4.5-7.5) Ur Specific [place] (1.000-1.030) Urine Protein (Negative) Urine Glucose (UA) (Negative) Urine Ketones (Negative) Urine Blood (Negative) Urine Nitrite (Negative) Urine Bilirubin (Negative) Urine Urobilinogen (Negative) Ur Leukocyte Esterase (Negative) Administered Medications Discontinued Medications Albuterol (Duoneb) 12 ml NEB ONE ONE Stop: 05/01/19 00:32 Last Admin: 05/01/19 00:52 Dose: 12 ml Documented by: [id number] Hydrocodone Bit/Homatropine Methylb (Hycodan) 5 ml PO NOW STA Stop: 05/01/19 00:32 Last Admin: 05/01/19 00:53 Dose: 5 ml Documented by: [id number] Sodium Chloride (Nss 1000ml) 1,000 mls @ 999 mls/hr IV .Q1H1M ONE Stop: 05/01/19 03:08 Last Infusion: 05/01/19 03:41 Dose: 0 mls/hr Documented by: [id number] Admin: 05/01/19 02:27 Dose: 999 mls/hr Documented by: [id number] Sodium Chloride (Nss 1000ml) 1,000 mls @ 999 mls/hr IV .Q1H1M ONE Stop: 05/01/19 03:08 Last Infusion: 05/01/19 06:12 Dose: 0 mls/hr Documented by: [id number] Admin: 05/01/19 04:01 Dose: 999 mls/hr Documented by: [id number] Levofloxacin/Dextrose (Levaquin/D5w) 750 mg in 150 mls @ 100 mls/hr IV NOW STA Stop: 05/01/19 03:35 Last Infusion: 05/01/19 04:01 Dose: 0 mls/hr Documented by: [id number] Admin: 05/01/19 02:27 Dose: 100 mls/hr Documented by: [id number] Methylprednisolone (Solumedrol) 125 mg IV NOW STA Stop: 05/01/19 00:32 Last Admin: 05/01/19 01:26 Dose: 125 mg Documented by: [id number] Oseltamivir Phosphate (Tamiflu) 75 mg PO NOW STA Stop: 05/01/19 00:32 Last Admin: 05/01/19 00:53 Dose: 75 mg Documented by: [id number] Discharge Plan Visit Data *Final* Discharge Date/Time: 05/01/19 05:01 Chief Complaint: Respiratory Problems Stated Complaint: TROUBLE BREATHING ED Provider: Anthony Rao Discharge Problem: Acute respiratory distress, Influenza, Acidosis, lactic, Pneumonia Patient Disposition: Admitted As Inpatient Discharge Instructions Interventions: ED Discharge Assessment Last Done: 05/01/19 05:01 Discharge Problem: Pneumonia Qualifiers: Pneumonia type: due to unspecified organism Laterality: unspecified laterality Lung location: unspecified part of lung Qualified Code(s): J18.9 - Pneumonia, unspecified organism The scribe's documentation has been prepared under my direction and personally reviewed by me in its entirety. I confirm that the note above accurately ref lects all work, treatment, procedures, and medical decision making performed by me.
--- NOTE | 2019-05-01 06:29 | XRay Report ---
XR chest 1V portable CLINICAL HISTORY: Sepsis, flulike symptoms. Shortness of breath. DIFFICULTY BREATHING COMPARISON STUDY: 04/30/2019 FINDINGS: The cardiac and mediastinal contours are normal. There is no evidence of focal pulmonary co nsolidation. There is no evidence of failure. No pleural effusions are visualized.[ IMPRESSION: No active disease in the chest. Electronically signed by: John Adkins M.D. 05/01/2019 6:28 AM
[2019-05-01] MEDS: ALBUT/IPRATROP 3MG/0.5MG NEB 3 ML VIAL NEB SCH ×4 (07:37→19:14)
[2019-05-01 07:46] LABS: Hepatitis B Surface Antigen Neg (Neg)
[2019-05-01 08:14] LABS: Hepatitis C IgG 13Yrs+Old_Rflx Neg (Neg)
[2019-05-01] MEDS: SERTRALINE HCL 50 MG TABLET PO SCH (08:58)
[2019-05-01] MEDS: methylPREDNISolone 60 MG in SYRINGE 0 ML IV SCH ×3 (08:58→23:10)
[2019-05-01] MEDS ORDERED: LACTATED RINGER'S 1,000 ML IV ONE (16:04)
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
--- NOTE | 2019-05-01 18:15 | Family Medicine Progress Note ---
Date of Service May 01, 2019 Subjective Please see separate documentation from the same date for actual clinical information. Today the EMR was changed to allow for in-EMR coding entry, and unfortunately residency documentation was on the older notes. This note was generated simply to allow entry of the proper codes, but the separate note/same date contains the actual clinical information. This should be a one-time issue, and I apologize for any confusion. Results & Data Vital Signs (Past 12 Hours) Vital Signs Temp Pulse Pulse Resp BP Pulse Ox 05/01/19 15:46 116 H 16 05/01/19 15:10 36.8 C 92 H 16 119/79 98 05/01/19 14:59 83 05/01/19 12:39 37.3 C 90 18 112/71 98 05/01/19 11:11 96 H 18 98 05/01/19 07:46 96 H 05/01/19 07:40 36.9 C 100 H 20 112/67 98 05/01/19 07:38 104 H 20 05/01/19 06:16 120 H
[2019-05-01] MEDS: DOXYCYCLINE HYCLATE 100 MG CAP PO SCH (20:33)
[2019-05-01] MEDS ORDERED: PRAZOSIN HCL 1 MG CAP PO SCH (21:00)
[2019-05-01] MEDS ORDERED: ARIPIprazole 1 MG/ML ORAL SOLN 150 ML BTL PO SCH (21:00)
[2019-05-01] MEDS ORDERED: PSEUDOEPHEDRINE HCL 30 MG TAB PO PRN (22:40)
[2019-05-02] MEDS ORDERED: LEVOFLOXACIN/D5W 500 MG/100 ML BAG IV SCH (02:00)
[2019-05-02] MEDS: ALBUT/IPRATROP 3MG/0.5MG NEB 3 ML VIAL NEB SCH ×3 (07:29→14:49)
[2019-05-02] MEDS: DOXYCYCLINE HYCLATE 100 MG CAP PO SCH (07:52)
[2019-05-02] MEDS: SERTRALINE HCL 50 MG TABLET PO SCH (07:52)
[2019-05-02] MEDS: methylPREDNISolone 60 MG in SYRINGE 0 ML IV SCH ×2 (08:35→17:26)
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
[2019-05-02] MEDS ORDERED: predniSONE 20 MG TAB PO ONE (17:00)
[2019-05-03] MEDS ORDERED: predniSONE 20 MG TAB PO SCH (09:00)
== END 2019-05-02 17:44 | disposition home or self-care (01) | DRG 194 ==
LOC: ED 00:07 → 2W 04:06 → SUATTDRO 04:06 → 2W 05:01
DX: E87.2 Acidosis; J10.1 Influenza due to other identified influenza virus with other respiratory manifestations; F33.9 Major depressive disorder, recurrent, unspecified; J45.901 Unspecified asthma with (acute) exacerbation; J45.902 Unspecified asthma with status asthmaticus; Z79.899 Other long term (current) drug therapy; R00.0 Tachycardia, unspecified; F43.10 Post-traumatic stress disorder, unspecified; R74.0 Nonspecific elevation of levels of transaminase and lactic acid dehydrogenase [LDH]